=== PATIENT | female | born 1965 | race Caucasian/White ===

== ENCOUNTER 2022-03-26 10:42 | Emergency (ER) | payer MEDICARE, MEDICAID ==
[~2022-03-26] VITALS: Ht 124.5 cm; Wt 41.0 kg
[~2022-03-26 10:42] MED LIST: CALCIO DEL MAR PO; ESCI10TA PO; OMEP20CA15 PO; OXCA300T4 PO; OXYB10TA4 PO; PHENOBARBITAL PO
== END 2022-03-26 11:44 | disposition home or self-care (01) ==
LOC: ER 10:44
DX: S09.90XA Unspecified injury of head, initial encounter (principal); R62.50 Unspecified lack of expected normal physiological development in childhood; K21.9 Gastro-esophageal reflux disease without esophagitis; Z86.69 Personal history of other diseases of the nervous system and sense organs; Z79.899 Other long term (current) drug therapy; W19.XXXA Unspecified fall, initial encounter; Y93.89 Activity, other specified; Y92.89 Other specified places as the place of occurrence of the external cause; Y99.8 Other external cause status
CPT/HCPCS: 99281

== ENCOUNTER 2023-08-05 14:20 | Emergency (ER) | payer MEDICARE, MEDICAID ==
[~2023-08-05] VITALS: Ht 134.6 cm; Wt 54.5 kg
[2023-08-05 15:07] VITALS: TEMP 97.8
[2023-08-05 18:56] VITALS: BP 143/103; PULSE 129; O2SAT 98
[2023-08-06 00:38] VITALS: RESP 14
== END 2023-08-06 02:04 | disposition home or self-care (01) ==
LOC: ER 14:21
DX: S09.90XA Unspecified injury of head, initial encounter (principal); K21.9 Gastro-esophageal reflux disease without esophagitis; Z79.899 Other long term (current) drug therapy; W19.XXXA Unspecified fall, initial encounter; Y93.89 Activity, other specified; Y92.89 Other specified places as the place of occurrence of the external cause; Y99.8 Other external cause status
CPT/HCPCS: 70450; 73521; 99284